=== PATIENT | female | born 1950 | race Caucasian/White ===

== ENCOUNTER 2016-12-05 07:41 | Emergency (ER) | payer MEDICARE, MEDICAID ==
[~2016-12-05] VITALS: Ht 167.6 cm; Wt 65.0 kg
[~2016-12-05 07:41] MED LIST: FLEXERIL PO; LISINOPRIL10 MG PO; NAPROSYN500 MG OR; PAXIL40 MG PO; ULTRAM50 M1 PO
[2016-12-05] MEDS ORDERED: ULTRAM50 M1 PO (10:06)
[2016-12-05 10:36] VITALS: BP 154/102
== END 2016-12-05 10:37 | disposition home or self-care (01) ==
LOC: ED 07:41
DX: S00.03XA Contusion of scalp, initial encounter (principal); S30.0XXA Contusion of lower back and pelvis, initial encounter; W06.XXXA Fall from bed, initial encounter; Y93.84 Activity, sleeping; Y92.003 Bedroom of unspecified non-institutional (private) residence as the place of occurrence of the external cause

== ENCOUNTER 2017-09-02 13:05 | Emergency (ER) | payer MEDICARE ==
[~2017-09-02] VITALS: Ht 167.6 cm; Wt 74.1 kg
[2017-09-02] MEDS ORDERED: PROPRANOLOL HCL80 M1 PO (13:20)
[2017-09-02] MEDS ORDERED: ATORVASTATIN CA40 MG PO (13:20)
[2017-09-02] MEDS ORDERED: PAROXETINE HCL20 MG PO (13:20)
[2017-09-02 14:19] LABS: HEMATOCRIT 43.7 % (37.0-47.0); HEMOGLOBIN 14.6 g/dl (12.0-16.0); IMMATURE GRANULOCYTES 0.2 % (0.0-5.0); MEAN CELL VOLUME 86.7 fL CALC (80.0-100.0); MEAN CORPUSCULAR HGB CONC 33.4 g/L CALC (32.0-36.0); NEUT# 4.13 thou/uL (2.00-7.15); RED BLOOD COUNT 5.04 mill/uL (4.20-5.60); RED CELL DISTRI WIDTH 12.5 % (11.5-15.5)
[2017-09-02 14:28] LABS: ALBUMIN 4.2 g/dL (3.2-5.0); ALKALINE PHOSPHATASE 72 u/l (38-126); ANION GAP 15 (6-22 (CALC)); BILIRUBIN, TOTAL 0.6 mg/dL (0.0-1.4); BUN 14 mg/dL (8-23); BUN/CREATININE RATIO 19 (12-20 (CALC)); CARBON DIOXIDE 24 mmol/l (22-30); CHLORIDE 107 mmol/l (95-108); CREATININE 0.7 mg/dL (0.5-1.0); GFR > 60 ML/MIN (>=60 (CALC)); GFR FOR AFR.AMER. > 60 ML/MIN (>=60 (CALC)); POTASSIUM 4.4 mmol/l (3.5-5.1); SGOT/AST 25 u/l (9-36); SGPT/ALT 37 u/l (11-66); SODIUM 141 mmol/l (137-146); TOTAL PROTEIN 7.1 g/dL (6.3-8.2)
[2017-09-02] MEDS ORDERED: MEDDOSEPAK PO (14:59)
[2017-09-02] MEDS ORDERED: TORADOL PO (14:59)
[2017-09-02 15:08] VITALS: BP 132/88
== END 2017-09-02 15:25 | disposition home or self-care (01) ==
LOC: ED 13:05
PROVIDERS: Emergency Medicine
DX: G89.29 Other chronic pain (principal); R51 Headache; M79.602 Pain in left arm; I10 Essential (primary) hypertension; E78.00 Pure hypercholesterolemia, unspecified; F41.9 Anxiety disorder, unspecified; G43.909 Migraine, unspecified, not intractable, without status migrainosus

== ENCOUNTER 2018-06-03 07:40 | Day surgery (SDC) | payer MEDICARE ==
[~2018-06-03] VITALS: Ht 167.6 cm; Wt 74.8 kg
[~2018-06-03 07:40] MED LIST changes: +ATORVASTATIN CA40 MG PO; +MEDDOSEPAK PO; +PAROXETINE HCL20 MG PO; +PROPRANOLOL HCL80 M1 PO; +SUMATRIPTAN25 MG PO; +TOPAMAX50 M1 PO; +TORADOL PO
[2018-06-03 11:44] VITALS: BP 115/68
== END 2018-06-03 12:07 | disposition home or self-care (01) ==
LOC: ENDO 07:40 → ORM 11:00 → ENDO 12:07
PROVIDERS: ATTEND Surgery
PROC: 0DBL8ZX Excision of Transverse Colon, Via Natural or Artificial Opening Endoscopic, Diagnostic (ICD-10-PCS; principal; 2018-06-03)
PROC: 0DB68ZX Excision of Stomach, Via Natural or Artificial Opening Endoscopic, Diagnostic (ICD-10-PCS; 2018-06-03)
DX: Z12.11 Encounter for screening for malignant neoplasm of colon (principal); D12.3 Benign neoplasm of transverse colon; K57.30 Diverticulosis of large intestine without perforation or abscess without bleeding; K64.8 Other hemorrhoids; K29.50 Unspecified chronic gastritis without bleeding; B96.81 Helicobacter pylori [H. pylori] as the cause of diseases classified elsewhere; K44.9 Diaphragmatic hernia without obstruction or gangrene; Z86.010 Personal history of colon polyps